=== PATIENT | female | born 1970 | race Hispanic/Latino ===

== ENCOUNTER → 2024-02-02 | Outpatient (REF) | payer OTHER ==
[~2024-02-02] MED LIST: FAMOTIDINE20 MG PO; IOPAMIDOL 370 MG/ML 100 ML INFUS..BTL INJ ONE; SERTRALINE HCL100 MG PO; TRAZODONE HCL50 MG PO
== END ==
LOC: CT 11:03
PROVIDERS: ATTEND Nurse Practitioner Family
DX: R10.2 Pelvic and perineal pain (principal); R19.8 Other specified symptoms and signs involving the digestive system and abdomen
CPT/HCPCS: 74177; Q9967

== ENCOUNTER → 2024-02-16 | Day surgery (SDC) | payer OTHER ==
[~2024-02-16] MED LIST changes: -IOPAMIDOL 370 MG/ML 100 ML INFUS..BTL INJ ONE; +LIDOCAINE HCL 2% LOCAL INJ 5 ML SDV VIAL INJ ONE; +MIDAZOLAM HCL 2 MG/2 ML VIAL ONE; +PROPOFOL IV EMULSION 10 MG/ML 20 ML VIAL ONE
[2024-02-16] MEDS: LACTATED RINGER'S 1,000 ML ONE (14:11)
[2024-02-16 15:54] VITALS: TEMP 97.9
[2024-02-16 16:20] VITALS: BP 127/82; PULSE 71; RESP 17; O2SAT 97
== END | disposition home or self-care (01) ==
LOC: OR 13:48
PROVIDERS: ATTEND Internal Medicine Gastroenterology
DX: Z12.11 Encounter for screening for malignant neoplasm of colon (principal); K59.00 Constipation, unspecified; K21.9 Gastro-esophageal reflux disease without esophagitis; R19.8 Other specified symptoms and signs involving the digestive system and abdomen; K76.0 Fatty (change of) liver, not elsewhere classified; D64.9 Anemia, unspecified; M06.9 Rheumatoid arthritis, unspecified; M19.90 Unspecified osteoarthritis, unspecified site; F41.9 Anxiety disorder, unspecified; Z01.810 Encounter for preprocedural cardiovascular examination; Z79.899 Other long term (current) drug therapy
CPT/HCPCS: 45378; 93005; J2003; J2250; J2704; J7121